=== PATIENT | male | born 1995 | race Caucasian/White ===

== ENCOUNTER 2018-07-07 20:29 | Emergency (ER) | payer OTHER ==
[~2018-07-07] VITALS: Ht 193 cm; Wt 88.0 kg
[2018-07-07 21:20] VITALS: BP 133/77
--- NOTE | 2018-07-08 11:42 | EKG ---
[place] [address] ELECTROCARDIOGRAM REPORT Name: JOSSE PAINTER [facility] Marie[facility] [id number] Admission: 07/07/18 Attend Phys: Discharge: 07/07/18 Date of : [birth year] Report #: [id number] THIS REPORT FOR: //name// [facility] ED Test Date: 2018-07-07 Test Time: 20:34:23 Pat Name: JOSSE PAINTER Department: Room: Gender: M Label Pinker: SYDNI : 1995 Requested By: Haim Bone Order Number: [id number] MD: Jesús Tracy Measurements Intervals [place] Rate: 75 P: 79 SC: 141 QRS: 83 QRSD: 96 T: 50 QT: 391 QTc: 437 Interpretive Statements Sinus rhythm Baseline wander in lead(s) V2,V3,V4,V5,V6 No previous ECG available for comparison Electronically Signed On 07-08-2018 11:42:25 CDT by Jesús Tracy [email or web address] <ELECTRONICALLY SIGNED> By: Jesús Tracy MD, [facility] 07/08/18 1142 33 Jesús Tracy MD, FACC /EPI
== END 2018-07-07 21:24 | disposition home or self-care (01) ==
LOC: M.ERS 20:29
DX: R07.89 Other chest pain (principal); K21.9 Gastro-esophageal reflux disease without esophagitis; E78.00 Pure hypercholesterolemia, unspecified